=== PATIENT | female | born 1970 | race Caucasian/White ===

== ENCOUNTER 2019-02-15 08:22 | Day surgery (SDC) | payer BC ==
[~2019-02-15] VITALS: Ht 170.2 cm; Wt 95.6 kg
[~2019-02-15 08:22] MED LIST: DIAZ2 PO; Daily Multiple1 EACH PO; Glucosamine &1 EACH PO; HYDMOR2 PO; LEVSOD100 PO; NAPR500ERA PO; Naltrexone HCl50 MG PO; Synthroid137 MCG PO; TRAM50 PO; VITAMIN D35000 UNIT PO; Vitamin B Comple1 EA PO
== END 2019-02-15 09:58 | disposition home or self-care (01) ==
LOC: ORSCSDS 08:22
PROVIDERS: Surgery
PROC: 0DJD8ZZ Inspection of Lower Intestinal Tract, Via Natural or Artificial Opening Endoscopic (ICD-10-PCS; principal; 2019-02-15 10:00)
DX: Z12.11 Encounter for screening for malignant neoplasm of colon (principal); K57.30 Diverticulosis of large intestine without perforation or abscess without bleeding; E66.01 Morbid (severe) obesity due to excess calories; Z68.33 Body mass index [BMI] 33.0-33.9, adult; Z79.899 Other long term (current) drug therapy
CPT/HCPCS: J2704; J7120

== ENCOUNTER → 2019-03-21 | Outpatient (CLI) | payer BC | LOC: LAB 10:46 → LAB SHORT 10:46 | DX: R30.0 Dysuria (principal) | CPT/HCPCS: 87077; 87086; 87186 ==

== ENCOUNTER → 2021-02-18 | Outpatient (CLI) | payer OTHER, BC | END | disposition home or self-care (01) | LOC: LAB 12:00 → LAB SHORT 12:00 | DX: D23.62 Other benign neoplasm of skin of left upper limb, including shoulder (principal) | CPT/HCPCS: 88305 ==